=== PATIENT | male | born 1945 | race Caucasian/White ===

== ENCOUNTER 2018-07-17 11:51 | Inpatient (IN) | payer OTHER ==
[~2018-07-17] VITALS: Ht 167.6 cm; Wt 59.2 kg
[~2018-07-17 11:51] MED LIST: A/B OTIC15 ML; AMARYL4 MG PO; ATORVASTATIN CA40 M1 PO; CLINDAMYCIN300 M1 PO; LAC PO; LEVAQUIN500 MG PO; LEVOTHYROXIN0.025 M2 PO; METFORMIN HCL1000 MG PO; ZES10 PO
[2018-07-17 12:48] LABS: BASOPHIL % 0.5 % (0-2); PLATELET COUNT 375 x10^3mcL (130-400); RED CELL DISTRIBUTION WIDTH 12.9 % (11.5-14.5)
[2018-07-17 13:29] LABS: CALCIUM 9.7 mg/dL (8.5-10.1); CARBON DIOXIDE 27.8 mmol/L (21-32); CHLORIDE SERUM 93 mmol/L (98-107); CREATININE SERUM 1.1 mg/dL (0.7-1.3); GLUCOSE SERUM 330 mg/dL (74-106); POTASSIUM SERUM 3.8 mmol/L (3.5-5.1); SODIUM SERUM 132 mmol/L (136-145)
[2018-07-17 13:35] LABS: AMPHETAMINE QUAL UR POSITIVE (See below)
[2018-07-17 13:35] LABS: ALBUMIN 3.5 g/dL (3.4-5.0); ALKALINE PHOSPHATASE 128 U/L (46-116); ALT/SGPT 18 U/L (16-63); AST/SGOT 15 U/L (15-37); BILIRUBIN TOTAL 0.5 mg/dL (0.20-1.00); TOTAL PROTEIN, SERUM 8.5 g/dL (6.4-8.2)
[2018-07-17 14:15] LABS: T3 TOTAL 1.04 ng/mL
[2018-07-17 14:17] LABS: MAGNESIUM 2.3 mg/dL (1.8-2.4); PHOSPHOROUS 3.7 mg/dL (2.5-4.9)
[2018-07-17 14:20] LABS: CHOLESTEROL/HDL RATIO 5.5
[2018-07-17 14:55] LABS: FREE T4 1.07 ng/dL (0.76-1.46); FREE THYROXINE INDEX 3.3 ug/dL (1.4-4.5); T4(THYROXINE) 8.9 ug/dL (4.7-13.3)
[2018-07-17 14:59] VITALS: BP 150/53
[2018-07-17 15:01] VITALS: Ht 167.6 cm; Wt 59.2 kg
[2018-07-17 17:14] VITALS: BP 140/78
[2018-07-17 19:56] VITALS: BP 118/61
[2018-07-18 04:52] VITALS: BP 115/54
[2018-07-18 06:47] LABS: CALCIUM 9.1 mg/dL (8.5-10.1); CARBON DIOXIDE 28.1 mmol/L (21-32); CHLORIDE SERUM 103 mmol/L (98-107); CREATININE SERUM 0.9 mg/dL (0.7-1.3); GLUCOSE SERUM 184 mg/dL (74-106); MAGNESIUM 2.1 mg/dL (1.8-2.4); PHOSPHOROUS 3.2 mg/dL (2.5-4.9); POTASSIUM SERUM 4.3 mmol/L (3.5-5.1); SODIUM SERUM 138 mmol/L (136-145)
[2018-07-18 06:55] LABS: BASOPHIL % 0.5 % (0-2); PLATELET COUNT 338 x10^3mcL (130-400); RED CELL DISTRIBUTION WIDTH 12.9 % (11.5-14.5)
[2018-07-18 09:02] VITALS: BP 123/63
[2018-07-18 17:16] VITALS: BP 122/71
[2018-07-18 20:25] VITALS: BP 116/48
[2018-07-19 05:09] VITALS: BP 131/64
[2018-07-19 06:35] LABS: BASOPHIL % 0.6 % (0-2); PLATELET COUNT 316 x10^3mcL (130-400); RED CELL DISTRIBUTION WIDTH 12.9 % (11.5-14.5)
[2018-07-19 06:39] LABS: CALCIUM 8.5 mg/dL (8.5-10.1); CHLORIDE SERUM 110 mmol/L (98-107); CREATININE SERUM 0.8 mg/dL (0.7-1.3); GLUCOSE SERUM 135 mg/dL (74-106); MAGNESIUM 1.9 mg/dL (1.8-2.4); PHOSPHOROUS 3.3 mg/dL (2.5-4.9); POTASSIUM SERUM 4.8 mmol/L (3.5-5.1); SODIUM SERUM 145 mmol/L (136-145)
[2018-07-19 07:47] VITALS: BP 126/61
[2018-07-19 11:51] VITALS: BP 134/65
[2018-07-19 16:52] VITALS: BP 119/60
[2018-07-19 20:57] VITALS: BP 126/68
[2018-07-20 05:10] VITALS: BP 128/56
[2018-07-20 07:59] LABS: CALCIUM 8.5 mg/dL (8.5-10.1); CARBON DIOXIDE 28.4 mmol/L (21-32); CHLORIDE SERUM 107 mmol/L (98-107); CREATININE SERUM 0.9 mg/dL (0.7-1.3); GLUCOSE SERUM 172 mg/dL (74-106); SODIUM SERUM 138 mmol/L (136-145)
[2018-07-20 08:13] LABS: BASOPHIL % 0.8 % (0-2); PLATELET COUNT 325 x10^3mcL (130-400)
[2018-07-20 09:07] VITALS: BP 112/48
[2018-07-20 17:36] VITALS: BP 141/70
[2018-07-20 20:47] VITALS: BP 127/58
[2018-07-21 06:16] VITALS: BP 110/53
[2018-07-21 06:25] LABS: BASOPHIL % 0.6 % (0-2); PLATELET COUNT 317 x10^3mcL (130-400); RED CELL DISTRIBUTION WIDTH 12.8 % (11.5-14.5)
[2018-07-21 06:38] LABS: CALCIUM 8.6 mg/dL (8.5-10.1); CHLORIDE SERUM 106 mmol/L (98-107); CREATININE SERUM 0.8 mg/dL (0.7-1.3); GLUCOSE SERUM 228 mg/dL (74-106); POTASSIUM SERUM 4.4 mmol/L (3.5-5.1); SODIUM SERUM 140 mmol/L (136-145)
[2018-07-21 09:35] VITALS: BP 115/46
[2018-07-21] MEDS ORDERED: APAP/HYDROCODON1 T13 PO (14:59)
[2018-07-21] MEDS ORDERED: KEF500 PO (14:59)
[2018-07-21] MEDS ORDERED: LIPI20 PO (15:03)
[2018-07-21] MEDS ORDERED: METFORMIN HCL1000 MG PO (15:03)
[2018-07-21 16:35] VITALS: BP 107/62
[2018-07-21 17:23] VITALS: BP 107/62
== END 2018-07-21 21:31 | disposition home or self-care (01) | DRG 638 ==
LOC: ED 11:51 → MU 13:39
PROVIDERS: Emergency Medicine; Internal Medicine
PROC: 0HBMXZZ Excision of Right Foot Skin, External Approach (ICD-10-PCS; principal; 2018-07-17)
DX: E11.621 Type 2 diabetes mellitus with foot ulcer (principal); D68.69 Other thrombophilia; E87.1 Hypo-osmolality and hyponatremia; L97.519 Non-pressure chronic ulcer of other part of right foot with unspecified severity; T38.3X6A Underdosing of insulin and oral hypoglycemic [antidiabetic] drugs, initial encounter; E11.65 Type 2 diabetes mellitus with hyperglycemia; E11.40 Type 2 diabetes mellitus with diabetic neuropathy, unspecified; E11.51 Type 2 diabetes mellitus with diabetic peripheral angiopathy without gangrene; K52.9 Noninfective gastroenteritis and colitis, unspecified; F15.10 Other stimulant abuse, uncomplicated; F12.10 Cannabis abuse, uncomplicated; E78.5 Hyperlipidemia, unspecified; Z68.21 Body mass index [BMI] 21.0-21.9, adult; Z91.120 Patient's intentional underdosing of medication regimen due to financial hardship; Y92.009 Unspecified place in unspecified non-institutional (private) residence as the place of occurrence of the external cause
CPT/HCPCS: 82962; 84439; J0696; J1815; J7030; Q0092